=== PATIENT | male | born 1975 | race Caucasian/White ===

== ENCOUNTER 2019-10-27 16:40 | Observation (INO) ==
[2019-10-27] MEDS ORDERED: Naloxone 0.4 MG/ML INJ IVP PRN (17:36)
[2019-10-27] MEDS ORDERED: Perflutren Lipid Microsphere 1.3 ML in 0.9 % Sodium Chloride 8.7 ML IVP PRN (18:01)
[2019-10-27] MEDS ORDERED: *HR* LORazepam 2 MG/ML VIAL IVP PRN ×3 (18:27)
[2019-10-27] MEDS ORDERED: traZODone 50 MG TABLET PO SCH (21:15)
[2019-10-27] MEDS: Nitroglycerin 0.4 MG TAB.SUBL SL SCH ×2 (21:47→22:36)
[2019-10-28 01:21] LABS: Basophils # 0.1 K/mcL (0.0-0.2); Basophils % 1.1 %; Eosinophils # 0.5 K/mcL (0.0-0.6); Eosinophils % 8.4 %; Hematocrit 38.7 % (37.5-50.1); Hemoglobin 13.2 g/dL (12.9-16.9); Immature Granulocytes % 0.2 % (0-4); Lymphocytes # 1.9 K/mcL (0.6-4.6); Lymphocytes % 35.4 %; Mean Corpuscular HGB Conc 34.1 g/dL (31.6-35.5); Mean Corpuscular Hemoglobin 32.9 pg (28.0-33.3); Mean Corpuscular Volume 96.5 fL (83.0-100.0); Mean Platelet Volume 9.5 fL (9.4-12.4); Monocytes # 0.6 K/mcL (0.0-1.3); Monocytes % 10.2 %; Neutrophils # 2.5 K/mcL (1.6-8.9); Platelet Count 162 K/mcL (140-400); Red Blood Count 4.01 M/mcL (4.19-5.50); Red Cell Distribution Width 11.6 % (11.5-14.5); Segmented Neutrophils % 44.7 %; White Blood Count 5.5 K/mcL (4.3-11.1)
[2019-10-28 01:39] LABS: BUN/Creatinine Ratio 15 (6-26); Blood Urea Nitrogen 15 mg/dL (6-20); Calcium 8.9 mg/dL (8.6-10.3); Carbon Dioxide 25 mEq/L (23-29); Chloride 106 mEq/L (98-107); Glucose 104 mg/dL (70-105); Osmolality,Calculated 289 (280-300); Potassium 4.2 mEq/L (3.5-5.1); Sodium 139 mEq/L (136-145); eGFR For African Americans > 60 (> 60); eGFR For Non-African Americans > 60 (> 60)
[2019-10-28 01:44] LABS: Chol/HDL Ratio 2.7 (0-4.9); Cholesterol 167 mg/dL (< 200); HDL Cholesterol 62 mg/dL (40-59); LDL Cholesterol,Calculated 64 mg/dL (< 100); Triglycerides 204 mg/dL (< 150)
[2019-10-28 01:54] LABS: Thyroid Stimulating Hormone 2.569 mcIU/mL (0.340-5.600)
[2019-10-28 06:55] LABS: Troponin I < 0.03 ng/mL (< 0.04)
[2019-10-28 08:30] LABS: Estimated Average Glucose 111 mg/dl
[2019-10-28] MEDS ORDERED: Aspirin Enteric Coated 81 MG Tablet PO SCH (09:00)
[2019-10-28] MEDS ORDERED: Vitamin B Complex/Vit C/Vit E 1 EACH TABLET PO SCH (09:00)
[2019-10-28] MEDS: Regadenoson 0.4 MG/5 ML SYRINGE IVP ONE ×2 (10:40→10:59)
[2019-10-28 11:22] VITALS: BP 160/96
== END 2019-10-28 13:19 | disposition home or self-care (01) ==
LOC: 3BNU
PROVIDERS: ADMIT Internal Medicine; ATTEND Internal Medicine